=== PATIENT | male | born 1940 | race Two or more races ===

== ENCOUNTER 2016-12-01 09:55 | Observation (INO) | payer MEDICARE, MEDICAID ==
[2016-12-01] MEDS ORDERED: Aspirin Low Dose CHEW TAB* 81 MG PO ONE (10:27)
[2016-12-01] MEDS ORDERED: Nitroglycerin 0.2 MG/HR PATCH* (5 MG) TRANSDERM ONE (10:29)
--- NOTE | 2016-12-01 11:37 | RAD ---
INDICATION: Chest pain. COMPARISON: Comparison is made with prior chest x-ray studies from August 12, 2013 and March 19, 2016. TECHNIQUE: A portable view of the chest was obtained. FINDINGS: The heart appears within normal limits in size. The thoracic aorta appears slightly tortuous and ectatic. The lungs are underinflated and clear. No pleural effusion or pneumothorax is seen. IMPRESSION: UNDERINFLATED LUNGS, NO EVIDENCE FOR ACUTE FINDING.
[2016-12-01 12:24] LABS: Hematocrit 40 % (42-52); Hemoglobin 14.1 g/dl (14.0-18.0); Mean Corpuscular HGB Conc 35 g/dl (31-36); Mean Corpuscular Hemoglobin 34 pg (27-31); Mean Corpuscular Volume 96 fL (80-94); Mean Platelet Volume 11 um3 (7.4-10.4); Red Blood Count 4.18 10^6/ul (4.0-5.4); Red Cell Distribution Width 14 % (10.5-15); White Blood Count 3.8 10^3/ul (3.5-10.8)
[2016-12-01 12:34] LABS: ALT 13 U/L (7-52); Albumin 4.2 g/dL (3.2-5.2); Alkaline Phosphatase 41 U/L (34-104); BUN/Creatinine Ratio 13.5 (8-20); Blood Urea Nitrogen 14 mg/dL (6-24); CO2 Carbon Dioxide 28 mmol/L (22-32); Calcium 9.4 mg/dL (8.6-10.3); Chloride 104 mmol/L (101-111); EGFR African American 89.8 (>60); EGFR Non-African American 69.8 (>60); Globulin 2.2 g/dL (2-4); Glucose 184 mg/dL (70-100); Magnesium 1.7 mg/dL (1.9-2.7); Sodium 136 mmol/L (133-145); Total Protein 6.4 g/dL (6.4-8.9)
[2016-12-01 13:30] LABS: Anion Gap 4 mmol/L (2-11)
[2016-12-01] MEDS ORDERED: Acetaminophen TAB* 325 MG PO PRN (13:34)
[2016-12-01] MEDS ORDERED: Ondansetron INJ* 2 MG/ML VIAL IV PRN (13:34)
[2016-12-01] MEDS ORDERED: Dextrose 50% Syringe 50 ML* 25 GM/50 ML SYRINGE IV PUSH PRN (13:34)
[2016-12-01] MEDS ORDERED: Albuterol 2.5 MG/3 ML NEB.SOL* (0.083%) INH PRN (13:43)
[2016-12-01] MEDS ORDERED: oxyCODONE/Acetamin 5/325 MG* TAB PO PRN (13:44)
[2016-12-01] MEDS ORDERED: Magnesium Sulfate 2 GM IV* 2 GM/50 ML BAG IVPB ONE (13:51)
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
[2016-12-01] MEDS: Heparin VIAL(*) 5000 UNITS/ML VIAL (FIVE THOUSAND) SUBCUT SCH ×2 (15:17→20:45)
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
[2016-12-01] MEDS: Insulin LISPRO* 1 UNITS UNIT SUBCUT SCH (17:40)
[2016-12-01] MEDS ORDERED: Gabapentin CAP(*) 300 MG PO SCH (21:00)
[2016-12-01] MEDS ORDERED: Atorvastatin* 10 MG TAB PO SCH (21:00)
[2016-12-02] MEDS: Heparin VIAL(*) 5000 UNITS/ML VIAL (FIVE THOUSAND) SUBCUT SCH (05:04)
[2016-12-02 05:40] LABS: Hematocrit 37 % (42-52); Hemoglobin 12.9 g/dl (14.0-18.0); Mean Corpuscular HGB Conc 35 g/dl (31-36); Mean Corpuscular Hemoglobin 34 pg (27-31); Mean Corpuscular Volume 96 fL (80-94); Mean Platelet Volume 10 um3 (7.4-10.4); Red Blood Count 3.85 10^6/ul (4.0-5.4); Red Cell Distribution Width 14 % (10.5-15); White Blood Count 4.3 10^3/ul (3.5-10.8)
[2016-12-02 05:54] LABS: BUN/Creatinine Ratio 14.3 (8-20); EGFR African American 96.2 (>60); EGFR Non-African American 74.8 (>60); HDL Cholesterol 38.2 mg/dL; Potassium 3.9 mmol/L (3.5-5.0)
[2016-12-02] MEDS: Insulin LISPRO* 1 UNITS UNIT SUBCUT SCH (08:15)
[2016-12-02] MEDS ORDERED: Fluticasone NASAL SPRAY 50MCG* 16 gm SPRAY BTL BOTH NARES SCH (09:00)
[2016-12-02] MEDS ORDERED: Doxazosin TAB* 2 MG PO SCH (09:00)
[2016-12-02] MEDS ORDERED: Aspirin Low Dose CHEW TAB* 81 MG PO SCH (09:00)
[2016-12-02] MEDS ORDERED: Omeprazole CAP* 20 MG PO SCH (09:00)
[2016-12-02] MEDS ORDERED: amLODIPine TAB* 5 MG PO SCH (09:00)
[2016-12-02] MEDS ORDERED: Lisinopril TAB* 10 MG PO SCH (09:00)
[2016-12-02 09:15] VITALS: BP 171/69
--- NOTE | 2016-12-02 12:57 | DS ---
Date of Admission: 12/01/16 Date of Discharge: 12/02/16 AMA Principal Diagnosis: Chest Pain Secondary Diagnoses: HTN HLD DMII Tobacco Abuse LVH CC: Chest Pain Discharge Medications: ASA 81mg daily Cardura 2mg daily flonase Xopenex Lisinopril 40mg daily Omeprazole 20mg daily Zocor 20mg daily Norvasc 5mg daily Metformin 500mg BID Percocet 5/325mg q6 prn pain EKG: NSR, normal intervals, LVH, TWIs V4-V6 (unchanged from prior) Hospital Course by Problem: 1. Atypical Chest Pain. Mr. Ivory presented with left sided chest pain that radiated to the left arm. It was not associated with exertion, nor with diaphoresis, nausea, or shortness of breath. It was relieved on the day following admission. Troponins were negative x 3. EKG did have nonspecific ischmic changes with TWIs laterally. Given his risk factors (DM, HTN, family history, tobacco abuse, HLD), it was recommended that he have a stress test as an inpatient, however Mr. Ivory disagreed and signed out AMA on 12/02/16. The risks of heart attack, heart failure, arrhythmias, and were explained to him and he was able to explain the risks back to me. His was present for the discussion. He will come back to the ED if the pain or any other symptoms return. 2. HTN. His home antihypertensives were continued and not changed. 3. DM. He is discharged on his home dose of metformin. 4. Disposition: Left AMA; he reported having all of his medications at home, and he agrees to follow up with his PCP.
== END 2016-12-02 10:45 | disposition left against medical advice (07) ==
LOC: ED 09:55 → MEDTELE 13:53
PROVIDERS: ADMIT Internal Medicine; ATTEND Internal Medicine
DX: R07.89 Other chest pain (principal); I10 Essential (primary) hypertension; E11.9 Type 2 diabetes mellitus without complications; Z79.84 Long term (current) use of oral hypoglycemic drugs; M79.602 Pain in left arm; R06.02 Shortness of breath; F17.210 Nicotine dependence, cigarettes, uncomplicated; E78.5 Hyperlipidemia, unspecified; J44.9 Chronic obstructive pulmonary disease, unspecified; Z79.899 Other long term (current) drug therapy
CPT/HCPCS: 36415; 71010; 80048; 80053; 80061; 83036; 83735; 83880; 84484; 85025; 85379; 85610; 85730; 93005; 96365; 96372; 99284; 99406; A9270-GY; G0378; J1644; J3475

== ENCOUNTER 2023-04-05 12:17 | Observation (INO) ==
[2023-04-05 12:40] LABS: ABS Basophils 0.1 10^3/uL (0.0-0.1); ABS Eosinophils 0.1 10^3/uL (0.0-0.5); ABS Lymphocytes 2.2 10^3/uL (1.0-4.8); ABS Monocytes 0.3 10^3/uL (0.0-1.1); ABS Neutrophils 1.5 10^3/uL (1.5-7.6); ABS Nucleated RBC 0.01 10^3/ul; Eosinophil % 2.2 %; Hematocrit 37.6 % (38-53); Hemoglobin 12.8 g/dL (13.2-16.3); Lymphocyte % 52.5 %; Mean Corpuscular Hgb Conc 34.2 g/dL (31-36); Mean Corpuscular Volume 96.5 fL (80-97); Mean Platelet Volume 9.6 fL (7.5-11.2); Nucleated Red Blood Cells % 0.3 %/100WBC (0.0-0.8); Platelet Count 232 10^3/uL (150-450); Red Blood Count 3.89 10^6/uL (4.06-5.63); Red Cell Distribution Width 16.4 % (12-17); White Blood Count 4.2 10^3/uL (3.6-10.2)
[2023-04-05 12:56] LABS: INR 1.07 (0.83-1.13)
[2023-04-05 12:57] LABS: ALT 10 U/L (7-52); AST 15 U/L (13-39); Albumin 4.2 g/dL (3.2-5.2); Albumin/Globulin Ratio 1.8 (1-3); Alkaline Phosphatase 39 U/L (35-149); Anion Gap 10 mmol/L (2-16); Blood Urea Nitrogen 13 mg/dL (6-24); CO2 Carbon Dioxide 26 mmol/L (22-32); Calcium 9.6 mg/dL (8.6-10.3); Chloride 103 mmol/L (101-111); Creatinine, Serum 1.29 mg/dL (0.67-1.17); Globulin 2.4 g/dL (2-4); Glucose 149 mg/dL (70-100); Potassium 3.9 mmol/L (3.5-5.0); Sodium 139 mmol/L (135-145); Total Bilirubin 0.6 mg/dL (0.2-1.0); Total Protein 6.6 g/dL (6.4-8.9); eGFR CKD-EPI 55.7 (>60)
[2023-04-05 13:03] LABS: High Sens Troponin Baseline 15 pg/mL (<20)
[2023-04-05 14:04] LABS: High Sensitivity Troponin 1 Hr 17 pg/mL (<20)
[2023-04-05] MEDS ORDERED: Iodixanol (CONTRAST) 320 MG/ML 100 ML SDV IV ONE (14:11)
[2023-04-05] MEDS ORDERED: Al Hydrox/Mg Hydrox/Simet LIQ 30 ML UDC PO PRN (17:39)
[2023-04-05] MEDS ORDERED: Polyethylene Glycol 3350 17 GM PACKET PO PRN (17:39)
[2023-04-05] MEDS ORDERED: Dextrose 50% Syringe 50 ml 25 GM/50 ML SYRINGE IV PUSH PRN (17:43)
[2023-04-05] MEDS ORDERED: Albuterol HFA INHALER 8 gm MDI INH PRN (17:45)
[2023-04-05] MEDS ORDERED: NS 0.9% 1000 ml BAG 1,000 ML IV SCH (17:45)
[2023-04-05] MEDS ORDERED: HYDROcodone/Acetamin 10/325 TAB (NF) PO PRN (18:33)
[2023-04-05 18:51] LABS: C Reactive Protein < 1.00 mg/L (<8.01)
[2023-04-05] MEDS: Heparin 5000 UNITS/ML 1 mL VIAL SUBCUT SCH (21:19)
[2023-04-06] MEDS: Heparin 5000 UNITS/ML 1 mL VIAL SUBCUT SCH (06:11)
[2023-04-06 07:38] LABS: Calcium 9.2 mg/dL (8.6-10.3); Creatinine, Serum 0.98 mg/dL (0.67-1.17); Potassium 3.6 mmol/L (3.5-5.0); eGFR CKD-EPI 77.5 (>60)
[2023-04-06 07:45] LABS: ABS Eosinophils 0.1 10^3/uL (0.0-0.5); ABS Monocytes 0.3 10^3/uL (0.0-1.1); ABS Neutrophils 1.8 10^3/uL (1.5-7.6); Eosinophil % 2.6 %; Hemoglobin 11.3 g/dL (13.2-16.3); Lymphocyte % 47.4 %; Mean Corpuscular Hemoglobin 32.6 pg (27-33); Mean Corpuscular Hgb Conc 33.2 g/dL (31-36); Mean Corpuscular Volume 98.3 fL (80-97); Nucleated Red Blood Cells % 0.1 %/100WBC (0.0-0.8); Platelet Count 173 10^3/uL (150-450); Red Blood Count 3.46 10^6/uL (4.06-5.63); Red Cell Distribution Width 16.5 % (12-17); White Blood Count 4.3 10^3/uL (3.6-10.2)
[2023-04-06] MEDS ORDERED: Potassium EFFERVES 25 meq TAB PO ONE (07:58)
[2023-04-06] MEDS: Aspirin EC 81 mg TAB.EC (enteric coated) PO SCH (08:59)
[2023-04-06] MEDS: CMC:FLUTICAS/UMECLI/VILANT 100-62.5-25 MDI (NF) INH SCH (09:07)
[2023-04-06 09:23] LABS: Magnesium 1.4 mg/dL (1.9-2.7)
[2023-04-06] MEDS ORDERED: Magnesium Sulfate 2 gm BAG 2 GM/50 ML BAG IVPB ONE (09:47)
[2023-04-06] MEDS ORDERED: hydrALAZINE 20 mg/ml 1 ML Vial IV IV SLOW PU PRN (13:31)
[2023-04-06] MEDS ORDERED: Enoxaparin 60 MG/0.6 ML SYR SUBCUT ONE (13:52)
[2023-04-07 06:25] LABS: Hematocrit 34.9 % (38-53); Hemoglobin 11.8 g/dL (13.2-16.3); Mean Corpuscular Hemoglobin 33.2 pg (27-33); Mean Corpuscular Hgb Conc 33.8 g/dL (31-36); Mean Platelet Volume 9.9 fL (7.5-11.2); Platelet Count 184 10^3/uL (150-450); Red Blood Count 3.56 10^6/uL (4.06-5.63); Red Cell Distribution Width 16.8 % (12-17); White Blood Count 4.9 10^3/uL (3.6-10.2)
[2023-04-07 06:44] LABS: Calcium 9.1 mg/dL (8.6-10.3); Creatinine, Serum 1.07 mg/dL (0.67-1.17); Magnesium 1.7 mg/dL (1.9-2.7); Potassium 4.2 mmol/L (3.5-5.0); eGFR CKD-EPI 69.7 (>60)
[2023-04-07] MEDS ORDERED: Magnesium Sulfate 2 gm BAG 2 GM/50 ML BAG IVPB ONE (07:18)
[2023-04-07] MEDS: CMC:FLUTICAS/UMECLI/VILANT 100-62.5-25 MDI (NF) INH SCH (08:17)
[2023-04-07] MEDS: Aspirin EC 81 mg TAB.EC (enteric coated) PO SCH (08:28)
[2023-04-07] MEDS ORDERED: Lidocaine 1% MPF 5 ML VIAL ONE (09:39)
[2023-04-07 13:28] VITALS: BP 155/73
== END 2023-04-07 14:35 | disposition home or self-care (01) ==
LOC: ED 12:17 → EDHOLD 12:17 → SUATTDRO 17:43 → MEDTELE 19:47
PROVIDERS: ADMIT Internal Medicine; ATTEND Student in an Organized Health Care Education/Training Program